=== PATIENT | female | born 2000 | race Caucasian/White ===

== ENCOUNTER 2023-06-01 10:11 | Outpatient (CLI) | payer OTHER, SELFPAY | END 2023-06-01 10:12 | disposition home or self-care (01) | LOC: FRMREF 10:12 | PROVIDERS: PCP Family Medicine; Visit Provider Dermatology | DX: L73.2 Hidradenitis suppurativa (principal) | CPT/HCPCS: 87070 ==

== ENCOUNTER 2024-06-20 12:54 | Outpatient (CLI) | payer MEDICARE, SELFPAY | END 2024-06-20 12:55 | disposition home or self-care (01) | PROVIDERS: PCP Family Medicine; Visit Provider Family Medicine | DX: R79.89 Other specified abnormal findings of blood chemistry (principal); F32.A Depression, unspecified; L73.2 Hidradenitis suppurativa; H65.90 Unspecified nonsuppurative otitis media, unspecified ear; F41.9 Anxiety disorder, unspecified | CPT/HCPCS: 80048; 80061; 82306 ==